=== PATIENT | female | born 1955 | race Caucasian/White ===

== ENCOUNTER → 2017-02-16 | Outpatient (CLI) | payer OTHER ==
--- NOTE | ~2017-02-16 | CST ---
Cardiac Perfusion Imaging Demographics Patient Name PATRICIA Ria Gender Female Patient Number [id number] Race Visit Number [id number] Ethnicity Corporate ID Room Number Accession Number [id number] Height 64 inches Date of 1955 Weight 205 pounds Age 61 year(s) BSA 1.98 m Referring Physician Monico Mccormick BMI 35.19 kg/m [facility] Date of study 02/16/2017 Physician Radiology Brian Sanchez M.D. Supervising /ANA ROSAP Monico Mccormick MD NM Technologist Ori Pedroza, [facility] Ordering Physician Monico Mccormick MD Stress Alton Griffiths dental equipment technician Stress ECG Reading Monico Mccormick MD Nurse Sina Navarroy Physician Iker Brito The procedure was explained in detail to the patient. Risks, complications and alternative treatments were reviewed. Written consent was obtained. Medications Reviewed with Patient prior to Procedure. Procedure Procedure Type: Nuclear Stress Test:Pharmacological, Lexiscan Procedure Start time: 02/16/2017 08:00 Indications: Family history of coronary artery disease, Hypertension, Tobacco use-prior and Dyspnea. Risk Factors The patient risk factors include:former tobacco use, treated hypertension, family history of premature CAD appeared at age 54 and ( years not smokin). Conclusions Summary Perfusion Images: The overall quality of the study is good. Left ventricular cavity is noted to be normal on the stress and rest studies. There is no evidence of abnormal lung activity. The right ventricle is not visualized and cannot be assessed. Stress SPECT images demonstrate homogenous tracer distribution throughout the myocardium. Rest SPECT images demonstrate homogenous tracer distribution throughout the myocardium. Gated SPECT imaging reveals normal myocardial thickening and wall motion. The left ventricular ejection fraction was calculated to be 74%. Impression 1. Normal myocardial perfusion. 2. Normal left ventricular systolic function with an ejection fraction of 74%. Stress Protocols Resting HR:70 bpm Resting BP:132/82 mmHg Stress Protocol:Pharmacologic Predicted HR: 158 bpm Test duration: 06:00 min Reason for termination:Infusion complete ECG Findings Normal sinus rhythm. Symptoms No symptoms with Lexiscan infusion. Complications Procedure complication: None. Stress Interpretation Negative stress ECG for ischemia. Normal heart rate and blood pressure response to stress. No atrial or ventricular arrhythmias. Appropriate hemodynamic response to Lexiscan. No significant ST-T wave changes with Lexiscan. ECG portion is negative for ischemia by diagnostic criteria. Imaging Results Summed scores - Summed stress score: 5 - Summed rest score: 0 - Summed difference score: 5 Stress ejection Ejection fraction:74 % EDV :90 ml ESV :23 ml Stroke volume :67 ml LV mass :123 gr Imaging Protocols Rest Stress Isotope:Tc99m Myoview IV Isotope: Tc99m Myoview IV Isotope dose:10.5 mCi Isotope dose:31.6 mCi Date:02/16/2017 06:50 Date:02/16/2017 08:05 Technique: SPECT Technique: Gated Supine SPECT Supine Scan Time:30 minutes post injection Scan Time:15-30 minutes post injection Procedure Medications - Regadenoson (Lexiscan) 0.4 mg IV over 10-15 sec. I.V. 0.4 mg. Medications administered per verbal order and read back to physician prior to administration. Medical History Admission Data Admission date: 02/16/2017 Admission Time: 06:28 Hospital Status: Outpatient. Signatures
--- NOTE | ~2017-02-16 | ECH ---
Transthoracic Echocardiography Report (TTE) Demographics Patient Name LEIA GOMEZ Date of Study 02/16/2017 Patient Number [id number] Visit Number [id number] Date of 1955 Room Number Accession Number [id number] Gender Female Age 61 year(s) Referring Monico Mccormick Security Intern Celine Onofre Physician RDCS Physician Interpreting Mayra Eastman Reliner Physician MD Supervising Ordering Physician Monico Mccormick MD, MD/P Nurse Stress Car Dumper Operator Helper Conclusions Summary Technically adequate exam. The estimated left ventricular ejection fraction is 55-60%. No significant valvular abnormalities. Procedure Type of Study TTE procedure:Echo Complete SF. Procedure Date Date: 02/16/2017 Start: 08:15 AM Technical Quality: Adequate visualization Indications:Dyspnea. Appropriate Use Criteria: 9 Height: 64 inches Weight: 205 pounds BSA: 1.98 m Rhythm: NSR HR: 75 bpm BP: 132/82 mmHg M-Mode/2D Measurements LV Diastolic Dimension: 4.51 cm LV Systolic Dimension: 3.4 cm LV Septum Diastolic: 0.68 cm LV PW Diastolic: 0.78 cm AO Root Dimension: 2.84 cm Cardiac Output: 4.44 l/min LA Dimension: 2.85 cm Cardiac Index: 2.24 l/min*m RV Diastolic Dimension: 3.26 cm LA volume index: 26 ml/m LVOT: 1.88 cm LVOT VTI: 21.35 cm RV Base: 3.2 cm LV Stroke volume: 59.24 ml RV Mid: 1.9 cm LV Stroke volume index: 29.92 ml/m TAPSE: 2.7 cm TDI-S': 15 cm/s Doppler Measurements AV Peak Velocity: 1.2 m/s MV Peak E-Wave: 0.69 m/s AV Peak Gradient: 5.76 mmHg MV Peak A-Wave: 0.6 m/s AV Mean Gradient: 2.94 mmHg MV E/A Ratio: 1.16 LVOT Peak Velocity: 1.15 m/s MV P1/2t: 62.1 msec AV Area (Continuity):2.21 cm MV Deceleration Time: 236.2 msec MV Area (PHT): 3.54 cm PV Peak Velocity: 0.94 m/s E' Septal Velocity: 0.07 m/s PV Peak Gradient: 3.5 mmHg E' Lateral Velocity: 0.09 m/s A' Septal Velocity: 0.12 m/s A' Lateral Velocity: 0.12 m/s RA Area: 14.4 cm Findings Left Ventricle Normal left ventricle size and function. Diastolic assessment reveals normal relaxation. Right Ventricle Normal right ventricle structure and function. Left Atrium Normal left atrial size. Right Atrium Normal right atrial size. Mitral Valve Normal mitral valve structure and function. Trivial mitral regurgitation by color Doppler. Aortic Valve The aortic valve is mildly sclerotic. Tricuspid Valve Normal tricuspid valve structure and function. Trivial tricuspid regurgitation by color Doppler. Insufficient jet to calculate pulmonary pressures. Pulmonic Valve Normal pulmonic valve structure and function. Trivial pulmonic valve regurgitation by color Doppler. Pericardial Effusion No evidence of pericardial effusion. Miscellaneous Visualized portions of the aortic root and ascending aorta appear normal in size. Pleural Effusion No evidence of pleural effusion. Signature
== END | disposition home or self-care (01) ==
LOC: CARD 06:28
DX: R07.9 Chest pain, unspecified (principal); R06.00 Dyspnea, unspecified